=== PATIENT | male | born 1965 | race Caucasian/White ===

== ENCOUNTER 2018-05-27 07:28 | Emergency (ER) | payer OTHER ==
--- NOTE | 2018-05-27 08:01 | EDM.PDOC ---
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 Review of systems: As per history of present illness and below otherwise all systems reviewed and negative. Past medical history: As per history of present illness and as reviewed below otherwise noncontributory. Surgical history: As per history of present illness and as reviewed below otherwise noncontributory. Social history: No reported history of drug or alcohol abuse. Family history: As per history of present illness and as reviewed below otherwise noncontributory. Physical exam: HEENT: Atraumatic, normocephalic, pupils reactive, negative for conjunctival pallor or scleral icterus, mucous membranes moist, throat clear, neck supple, nontender, trachea midline. Lungs: Clear to auscultation, breath sounds equal bilaterally, chest nontender. Heart: S1S2, regular, negative for clicks, rubs, or JVD. Abdomen: Soft, nondistended, nontender. Negative for masses or hepatosplenomegaly. Negative for costovertebral tenderness. Pelvis: Stable nontender. Genitourinary: Deferred. Rectal: Deferred. Extremities: Patient has tenderness in the region of his right medial thigh and groin there is no cord there is no induration fluctuance no evidence of muscular rupture no ecchymosis CMS in neurovascular is unremarkable he has no cords or calf pain Neuro: Awake, alert, oriented. Cranial nerves II through XII unremarkable. Cerebellum unremarkable. Motor and sensory unremarkable throughout. Exam nonfocal. Diagnostics: X-ray right femur venous Doppler right lower extremity Therapeutics: Toradol 60 mg IM hydrocodone 5 mg by mouth Impression: #1 Right lower extremity pain probable muscle skeletal etiology Definitive disposition and diagnosis as appropriate pending reevaluation and review of above. right groin Pain Score (Numeric/FACES): 1 - Related Data Allergies Allergy/AdvReac Type Severity Reaction Status Date / Time No Known Allergies Allergy Verified 05/27/18 07:38 Home Meds: Home Meds . [No Known Home Meds] 08/24/14 [History] Past Medical History - Infectious Disease History Infectious Disease History: Reports: Chicken Pox, Mumps - Past Surgical History Musculoskeletal Surgical History: Reports: Other (See Below) Other Musculoskeletal Surgeries/Procedures:: Right tendon repair Social & Family History - Family History Family Medical History: Noncontributory - Tobacco Use Smoking Status *Q: Former Smoker Used Tobacco, but Quit: Yes Month/Year Tobacco Last Used: 1.5 - Alcohol Use Days Per Week of Alcohol Use: 2 Number of Drinks Per Day: 2 Total Drinks Per Week: 4 - Recreational Drug Use Recreational Drug Use: No Review of Systems - Review of Systems Review Of Systems: ROS reveals no pertinent complaints other than HPI. ED EXAM, GENERAL - Physical Exam Exam: See Below (See dictation) Course - Vital Signs Last Recorded V/S: Last Vital Signs Temp 35.7 C 05/27/18 07:38 Pulse 106 H 05/27/18 07:38 Resp 20 05/27/18 07:38 BP 145/93 H 05/27/18 07:38 Pulse Ox 95 05/27/18 07:38 - Orders/Labs/Meds Orders: Active Orders 24 hr Category Date Time Status Femur Min 2V Rt [CR] Stat Exams 05/27/18 07:55 Taken Venous Doppler Lwr Ext Rt [US] Stat Exams 05/27/18 07:55 Taken Meds: Medications Discontinued Medications Generic Name Dose Route Start Last Admin Trade Name Mejia PRN Reason Stop Dose Admin Hydrocodone Bitart/Acetaminophen 1 tab 05/27/18 08:19 05/27/18 09:02 [place] 325-5 Mg PO 05/27/18 08:20 1 tab ONETIME ONE Administration Ketorolac Tromethamine 60 mg 05/27/18 08:16 05/27/18 09:02 Toradol IM 05/27/18 08:17 60 mg ONETIME ONE Administration Departure - Departure Time of Disposition: 11:06 Disposition: Home, Self-Care 01 Condition: Good Clinical Impression: Groin injury - Discharge Information Referrals: PCP,None [Primary Care Provider] - Forms: ED Department Discharge Additional Instructions: The following information is given to patients seen in the emergency department who are being discharged to home. This information is to outline your options for follow-up care. We provide all patients seen in our emergency department with a follow-up referral. The need for follow-up, as well as the timing and circumstances, are variable depending upon the specifics of your emergency department visit. If you don't have a primary care physician on staff, we will provide you with a referral. We always advise you to contact your personal physician following an emergency department visit to inform them of the circumstance of the visit and for follow-up with them and/or the need for any referrals to a consulting specialist. The emergency department will also refer you to a specialist when appropriate. This referral assures that you have the opportunity for followup care with a specialist. All of these measure are taken in an effort to provide you with optimal care, which includes your followup. Under all circumstances we always encourage you to contact your private physician who remains a resource for coordinating your care. When calling for followup care, please make the office aware that this follow-up is from your recent emergency room visit. If for any reason you are refused follow-up, please contact the [facility] emergency department at and asked to speak to the emergency department charge nurse. Ultram as prescribed follow-up primary medical doctor as needed as discussed and return as needed as discussed - My Orders Last 24 Hours: My Active Orders 05/27/18 07:55 Femur Min 2V Rt [CR] Stat Venous Doppler Lwr Ext Rt [US] Stat - Assessment/Plan Last 24 Hours: My Active Orders 05/27/18 07:55 Femur Min 2V Rt [CR] Stat Venous Doppler Lwr Ext Rt [US] Stat
[2018-05-27] MEDS ORDERED: Ketorolac 60 MG/2 ML SDV IM ONE (08:16)
[2018-05-27] MEDS ORDERED: Acetaminophen/HYDROcodone 325-5 MG Tab PO ONE (08:19)
--- NOTE | 2018-05-29 18:28 | CR ---
EXAM DATE: 05/27/18 PATIENT'S AGE: 53 Patient: MARLENY HENDERSON Facility: [place], [place] Site . Site : 1965 Study: XRay Extremity Right femur [id number]/7/2018 8:34:23 AM Ordering Physician: Frank Beckham Final Report: INDICATION: Right groin pain. TECHNIQUE: AP and lateral right femur. FINDINGS: No fracture is seen of the right femur. The right hip joint appears relatively well preserved. Visualized right knee is unremarkable. IMPRESSION: No fracture is seen of the right femur. Right hip joint appears well preserved. Dictated by Alonzo Mac MD @ 05/27/2018 8:40:35 AM Dictated by: Alonzo Mac MD @ 05/27/2018 08:40:50 (Electronic Signature) Report Signed by Proxy. MTDDarius
--- NOTE | 2018-05-29 18:34 | US ---
EXAM DATE: 05/27/18 PATIENT'S AGE: 53 Patient: MARLENY HENDERSON Facility: [place], [place] Site . Site : 1965 Study: US Extremity Venous [id number]/7/2018 9:02:29 AM Ordering Physician: Frank Beckham Final Report: INDICATION: Right groin pain for 2 weeks. COMPARISON: None. TECHNIQUE: A compression venous ultrasound exam was performed of the right lower extremity using rutledge scale imaging, color Doppler and spectral Doppler analysis. FINDINGS: Sonographic imaging of the right lower extremity demonstrates normal compressibility and color Doppler venous blood flow within the common femoral vein, deep femoral vein, and the proximal greater saphenous vein. Within the thigh, the femoral vein is patent and compressible. At a lower level, the popliteal and posterior tibial veins also show normal compressibility and color Doppler venous blood flow. Limited imaging of the contralateral left groin was not performed. IMPRESSION: Normal venous ultrasound exam. No evidence of deep vein thrombosis within the right lower extremity. Dictated by Marleny Shell MD @ May 27 2018 9:14AM (Electronic Signature) Report Signed by Proxy. JO
== END 2018-05-27 11:15 | disposition home or self-care (01) ==
LOC: MW.ED 07:28
DX: S39.91XA Unspecified injury of abdomen, initial encounter (principal); Z87.891 Personal history of nicotine dependence; W22.8XXA Striking against or struck by other objects, initial encounter
CPT/HCPCS: 73552; 93971; 96372; 99284; A9270; J1885; 99283

== ENCOUNTER 2019-08-17 06:32 | Day surgery (SDC) | payer BC ==
[~2019-08-17 06:32] MED LIST: Lactated Ringers 1,000 ML IV SCH
[2019-08-17] MEDS ORDERED: Propofol 200 MG/20 ML SDV ONE ×3 (07:27→08:24)
[2019-08-17] MEDS ORDERED: Lidocaine 2% 5 ML SDV ONE (07:28)
--- NOTE | 2019-08-17 07:29 | PCM.PREANE ---
Preanesthetic Assessment - Anesthesia/Transfusion/Family Hx Anesthesia History: Prior Anesthesia Without Reaction Family History of Anesthesia Reaction: No Transfusion History: No Prior Transfusion(s) Intubation History: Unknown - Review of Systems General: No Symptoms Pulmonary: No Symptoms Cardiovascular: No Symptoms Gastrointestinal: No Symptoms, Other (screening colonoscopy) Neurological: No Symptoms Other: Reports: None - Physical Assessment NPO Status Date: 08/17/19 NPO Status Time: 06:00 Vital Signs: Last Vital Signs Temp 36.1 C 08/17/19 06:51 Pulse 106 H 08/17/19 06:51 Resp 18 08/17/19 06:51 BP 142/91 H 08/17/19 06:51 Pulse Ox 95 08/17/19 06:51 Height: 6 ft 1 in Weight: 125.645 kg ASA Class: 3 Mental Status: Alert & Oriented x3 Airway Class: Mallampati = 2 Dentition: Reports: Dentures (upper) Thyro-Mental Finger Breadths: 3 Mouth Opening Finger Breadths: 2 ROM/Head Extension: Full Lungs: Clear to Auscultation, Normal Respiratory Effort Cardiovascular: Regular Rate, Regular Rhythm - Allergies Allergies/Adverse Reactions: Allergies Allergy/AdvReac Type Severity Reaction Status Date / Time No Known Allergies Allergy Verified 08/13/19 11:49 - Blood Blood Available: No - Anesthesia Plan Pre-Op Medication Ordered: None - Acknowledgements Anesthesia Type Planned: MAC Pt an Appropriate Candidate for the Planned Anesthesia: Yes Alternatives and Risks of Anesthesia Discussed w Pt/Guardian: Yes Pt/Guardian Understands and Agrees with Anesthesia Plan: Yes PreAnesthesia Questionnaire HEENT History: Reports: Other (See Below) Other HEENT History: wears glasses, has upper denture Cardiovascular History: Reports: High Cholesterol Respiratory History: Reports: COPD (moderate), SOB Gastrointestinal History: Reports: Other (See Below) Other Gastrointestinal History: occasional heartburn- no medication Neurological History: Reports: Head Trauma, Other (See Below) Other Neuro History: hx of head trama as a child- required stiches Endocrine/Metabolic History: Reports: Hypothyroidism, Obesity/BMI 30+ - Infectious Disease History Infectious Disease History: Reports: Chicken Pox, Mumps - Past Surgical History HEENT Surgical History: Reports: Other (See Below) Other HEENT Surgeries/Procedures: cleft palate repair as an infant Musculoskeletal Surgical History: Reports: Other (See Below) Other Musculoskeletal Surgeries/Procedures:: hx of tendon repair right arm - SUBSTANCE USE Smoking Status *Q: Former Smoker Tobacco Use Within Last Twelve Months: No Recreational Drug Use History: No - HOME MEDS Home Medications: Home Meds Albuterol Sulfate [Proair Hfa] 2 puff INH ASDIRECTED PRN 08/13/19 [History] Fenofibrate Nanocrystallized [Fenofibrate] 145 mg PO DAILY 08/13/19 [History] Glycopyrrolate/Formoterol Fum [Bevespi Aerosphere Inhaler] 2 puff INH BID [History] Levothyroxine Sodium [Synthroid] 125 mcg PO DAILY 08/13/19 [History] atorvaSTATin Calcium [Atorvastatin Calcium] 10 mg PO BEDTIME 08/13/19 [History] - CURRENT (IN HOUSE) MEDS Current Meds: Current Medications Lactated Ringer's (Ringers, Lactated) 1,000 mls @ 125 mls/hr IV ASDIRECTED LINDSEY Last Admin: 08/17/19 07:00 Dose: 125 mls/hr
--- NOTE | 2019-08-17 08:44 | PCM.OPNOTE ---
- General Post-Op/Procedure Note Date of Surgery/Procedure: 08/17/19 Operative Procedure(s): Colonoscopy with snare and cold rectal polypectomies Pre Op Diagnosis: Desire for colorectal cancer screening Post-Op Diagnosis: Multiple rectal polyps Anesthesia Technique: MAC (ASA III) Primary Surgeon: Gigi Mojica Condition: Good Free Text/Narrative:: DICTATION 548207 CPT CODE 85430/[id number]
[2019-08-17] MEDS ORDERED: Lactated Ringers 1,000 ML IV SCH (08:45)
--- NOTE | 2019-08-17 09:06 | PCM.POSTAN ---
POST ANESTHESIA ASSESSMENT - MENTAL STATUS Mental Status: Alert, Oriented - VITAL SIGNS Vital Signs: Last Vital Signs Temp 36.1 C 08/17/19 06:51 Pulse 84 08/17/19 08:58 Resp 14 08/17/19 08:58 BP 130/87 08/17/19 08:58 Pulse Ox 92 L 08/17/19 08:58 - RESPIRATORY Respiratory Status: Respiratory Rate WNL, Airway Patent, O2 Saturation Stable - CARDIOVASCULAR CV Status: Pulse Rate WNL, Blood Pressure Stable - GASTROINTESTINAL GI Status: No Symptoms - POST OP HYDRATION Hydration Status: Adequate & Stable
--- NOTE | 2019-08-17 09:18 | PCM48HPAN ---
Post Anesthesia Note - EVALUATION WITHIN 48HRS OF ANESTHETIC Vital Signs in Normal Range: Yes Patient Participated in Evaluation: Yes Respiratory Function Stable: Yes Airway Patent: Yes Cardiovascular Function Stable: Yes Hydration Status Stable: Yes Pain Control Satisfactory: Yes Nausea and Vomiting Control Satisfactory: Yes Mental Status Recovered: Yes Vital Signs: Last Vital Signs Temp 36.3 C 08/17/19 09:03 Pulse 86 08/17/19 09:03 Resp 16 08/17/19 09:03 BP 145/62 H 08/17/19 09:03 Pulse Ox 97 08/17/19 09:03
--- NOTE | 2019-08-17 11:33 | OR ---
SURGEON: Gigi Mojica M.D. DATE OF PROCEDURE: 08/17/2019 OPERATION PERFORMED: Colonoscopy with snare and cold rectal polypectomies from 25, 20 and distal rectum. PRIMARY SURGEON: Gigi Mojica MD. ANESTHESIA: MAC. ASA CLASSIFICATION: III. PREOPERATIVE DIAGNOSIS: Desire for colorectal cancer screening. POSTOPERATIVE DIAGNOSIS: Multiple rectal polyps. DESCRIPTION OF PROCEDURE: The patient was taken to the endoscopy room and positioned on the endoscopy table in the left lateral decubitus position. Time-out was called for appropriate identification of the patient and procedure. Monitored anesthesia care was provided. The colonoscope was inserted into the rectum and advanced with moderate difficulty to the cecum where the colonoscope was retroflexed to visualize the ascending colon from below. The colonoscope was then straightened and slowly withdrawn. The cecum, ascending colon, hepatic flexure, transverse colon, splenic flexure, descending colon, and sigmoid colon showed no tumors, polyps, diverticula, or angiodysplastic changes. One polyp was removed at approximately 25 cm from the anal orifice. Two more polyps were removed from the mid rectum at 20 cm requiring snare polypectomy for one of the polyps. Fourth polyp was encountered in the distal rectum and likewise removed with cold biopsy forceps. The colonoscope was retroflexed to visualize the anal orifice from above. No other polyps were identified and there were no acute hemorrhoidal changes. The colonoscope was straightened, the rectum aspirated, then colonoscope removed. The patient tolerated the procedure well and was taken to recovery room in stable condition. MED / MARY ELLEN /[id number] JO
== END 2019-08-17 09:20 | disposition home or self-care (01) ==
LOC: MW.SDS 06:32
PROVIDERS: ATTEND Surgery
DX: K62.1 Rectal polyp (principal); E78.00 Pure hypercholesterolemia, unspecified; E03.9 Hypothyroidism, unspecified; J44.9 Chronic obstructive pulmonary disease, unspecified; M54.5 Low back pain; Z79.899 Other long term (current) drug therapy
CPT/HCPCS: 45380; 45385; J2001; J2704; J7120